=== PATIENT | male | born 1965 | race Caucasian/White ===

== ENCOUNTER → 2016-12-28 | Day surgery (SDC) | payer OTHER ==
[~2016-12-28] MED LIST: BACITRACIN 50,000 UNIT VIAL IRRIG ONE; BETAMET ACET/BETAMET NA PH 6 MG/1 ML - 5 ML ONE; EPINEPHrine Inj (1:1,000) 30mg/30ml vial ONE; HYDROcodone-APAP 7.5 MG-325 MG TABLET PO PRN; KETOROLAC 30 MG/1 ML VIAL ONE; LIDOCAINE MPF 2% - 5 ML (20 MG/1 ML) ONE; LIDOCAINE W/ SODIUM BICARB 0.5 ML SYR ONE; Lactated Ringers 1,000 ML PRIMARY IV ONE; Lactated Ringers 1,000 ML PRIMARY IV SCH; MIDAZOLAM 5 MG/1 ML ONE; MORPHINE SULFATE 2 MG/1 ML IVP PRN; NORMAL SALINE 10 ML SYRINGE FLUSH IVP PRN; ONDANSETRON 4 MG/2 ML VIAL IVP PRN; Ropivacaine 0.2% VIAL 20 ML ONE; Sodium Chloride 0.9% vial 10 ML ONE; ceFAZolin Inj 2gm (Premix) 50 ML IV ONE; fentaNYL Inj 250 MCG/5 ML VIAL ONE
[2016-12-28 17:04] VITALS: TEMP 97.1
[2016-12-28 17:13] VITALS: RESP 16
--- NOTE | 2016-12-30 15:31 | OPS CRUTCH ---
Diagnosis : Right Knee Scope Referral Reason: Gait Training/Knee Cryo Cuff S: The patient states he has been on crutches multiple times and is quite comfortable with them. O: The patient ambulated approximately 30 feet to the stairwell and then ascended and descended 12 stairs. He then ambulated 30 feet back into outpatient surgery where he was left with the nurses. A: The patient tolerated stair and gait training very well with little assistance. P: No further therapy is indicated at this time. MTDD
== END | disposition home or self-care (01) ==
LOC: SDSC 10:54
PROVIDERS: ATTEND Orthopaedic Surgery
DX: S83.31XA Tear of articular cartilage of right knee, current, initial encounter (principal); S83.241A Other tear of medial meniscus, current injury, right knee, initial encounter; M22.41 Chondromalacia patellae, right knee; M65.861 Other synovitis and tenosynovitis, right lower leg
CPT/HCPCS: 29876; 29881; A4216; J0171; J0690; J0702; J1885; J2704; J2795; J3010; J2001; J2250; J7120